=== PATIENT | female | born 1980 | race Caucasian/White ===

== ENCOUNTER 2021-08-12 18:13 | Emergency (ER) | payer OTHER ==
[2021-08-12] MEDS ORDERED: VIBRAMYCIN100 MG PO (19:49)
== END 2021-08-12 19:53 | disposition home or self-care (01) ==
LOC: FER 18:13
DX: S30.861A Insect bite (nonvenomous) of abdominal wall, initial encounter (principal); L03.311 Cellulitis of abdominal wall; J45.909 Unspecified asthma, uncomplicated; W57.XXXA Bitten or stung by nonvenomous insect and other nonvenomous arthropods, initial encounter; Z28.310 Unvaccinated for COVID-19
CPT/HCPCS: 99281